=== PATIENT | female | born 1965 | race Caucasian/White ===

== ENCOUNTER 2020-08-01 00:21 | Emergency (ER) | payer BC ==
[~2020-08-01] VITALS: Ht 162.6 cm; Wt 66.7 kg
[2020-08-01 00:25] VITALS: BP_SYST 149
--- NOTE | 2020-08-01 00:29 | NUR ---
Patient to ER bed 07 to gown for evaluation. Side rails up. Report given to RACHELLE.
--- NOTE | 2020-08-01 00:30 | NUR ---
PT AAO AND AMBULATORY ARRIVED VIA PRIVATE VEHICLE COMPLAINING OF HEADACHE. PT STATED THAT SHE FEELS IF FLUID IS DRIPPING DOWN INSIDE HER HEAD. PT STATED DISCOMFORT STARTED SINCE EARLIER TODAY AND HAS LASTED FOR A WEEK. DENIES ANY PREVIOUS MEDICAL HX. STATED PAIN TO HEAD OF 5/10 ON PAIN SCALE.
--- NOTE | 2020-08-01 00:30 | NUR ---
ER at bedside examining patient.
[2020-08-01] MEDS ORDERED: KETOROLAC TROMETHAMINE 30 MG VIAL IM ONE (01:00)
[2020-08-01] MEDS ORDERED: KETOROLAC TROMETHAMINE 60 MG/2 ML VIAL IM ONE (01:01)
[2020-08-01 01:11] LABS: BILIRUBIN,URINE NEGATIVE (NEGATIVE); BLOOD, URINE NEGATIVE (NEGATIVE); CLARITY/URINE CLEAR (CLEAR); COLOR,URINE YELLOW (YELLOW); GLUCOSE,URINE NEGATIVE (NEGATIVE); KETONES,URINE NEGATIVE (NEGATIVE); LEUKOCYTE ESTERASE ,URINE NEGATIVE (NEGATIVE); NITRITE, URINE NEGATIVE (NEGATIVE); PH,URINE 5.5 (5.0-8.0); PROTEIN URINE NEGATIVE (NEGATIVE); UROBILINOGEN,URINE 0.2 (0.2-1.0)
[2020-08-01 01:21] LABS: BARBITURATE, URINE NEGATIVE (NEG <=200); BENZODIAZEPINE, URINE NEGATIVE (NEG <=150); CANNABINOID, URINE NEGATIVE (NEG <=50); COCAINE, URINE NEGATIVE (NEG <=150); METHAMPHETAMINES SCREEN,URINE NEGATIVE (NEG <=500); OPIATE, URINE NEGATIVE (NEG <=100); PHENCYCLIDINE SCREEN,URINE NEGATIVE (NEG <=25); UR TRICYCLIC ANTIDEPRESSANTS NEGATIVE (NEG <=300); URINE AMPHETAMINE NEGATIVE (NEG <=500); URINE METHADONE NEGATIVE (NEG <=200); URINE OXYCODONE SCREEN NEGATIVE (NEG <=100); URINE PROPOXYPHENE SCREEN NEGATIVE (NEG <=300)
--- NOTE | 2020-08-01 01:30 | NUR ---
LAB AT BEDSIDE TO DRAW BLOOD SAMPLE. BLOOD SENT TO LAB FOR ANALYSIS.
[2020-08-01 01:49] LABS: BASOPHILS # (AUTO) 0.2 K/uL (0.0-0.2); BASOPHILS % (AUTO) 2.5 % (0.0-2.0); EOSINOPHILS # (AUTO) 0.1 K/uL (0.0-0.4); HEMATOCRIT 46.3 % (36-48); HEMOGLOBIN 14.7 g/dL (12.0-16.0); LYMPHOCYTES # (AUTO) 1.2 K/uL (1.0-5.5); LYMPHOCYTES % (AUTO) 17.1 % (20.5-51.5); MEAN CORPUSCULAR HEMOGLOBIN 29 pg (27-31); MEAN CORPUSCULAR HGB CONC 32 % (32-36); MEAN CORPUSCULAR VOLUME 91 fL (79.0-98.0); MONOCYTES # (AUTO) 0.5 K/uL (0.0-1.0); MONOCYTES % (AUTO) 7.7 % (1.7-9.3); NEUTROPHILS # (AUTO) 4.8 K/uL (1.8-7.7); NEUTROPHILS % (AUTO) 71.7 % (40.0-70.0); PLATELET COUNT (AUTO) 233 K/uL (130-430); RED BLOOD CELL COUNT(AUTO) 5.06 MIL/uL (4.2-6.2); WHITE BLOOD COUNT (AUTO) 6.8 K/uL (4.8-10.8)
[2020-08-01 02:11] LABS: ALBUMIN 3.9 g/dL (3.4-4.8); CALCIUM 9.4 mg/dL (8.4-11.0); CREATININE 0.75 mg/dL (0.55-1.30); POTASSIUM 3.8 mmol/L (3.5-5.1); TOTAL BILIRUBIN 0.5 mg/dL (0.0-1.0)
[2020-08-01] MEDS ORDERED: LORA-843 PO (02:35)
[2020-08-01 02:45] VITALS: BP_SYST 149
--- NOTE | 2020-08-01 02:45 | NUR ---
Patient given written and verbal discharge instructions and verbalizes understanding. DR. SEBASTIAN FLORES MD discussed with patient the results and treatment provided. Patient in stable condition. ID arm band removed. Patient educated on pain management and to follow up with PMD. Pain Scale 0/10. Opportunity for questions provided and answered.
== END 2020-08-01 02:45 | disposition home or self-care (01) ==
LOC: SED 00:21
DX: R09.81 Nasal congestion (principal)
CPT/HCPCS: 36415; 80053; 80307; 81003; 85025; 99283; J1885